=== PATIENT | female | born 2000 | race African-American/Black ===

== ENCOUNTER 2024-10-30 13:38 | Emergency (ER) | payer MEDICAID ==
[~2024-10-30] VITALS: Ht 182.9 cm; Wt 11.7 kg
[2024-10-30] MEDS ORDERED: ACYCLOVIR 400 MG TAB PO ONE (14:00)
[2024-10-30] MEDS ORDERED: predniSONE 20 MG TAB PO ONE (14:00)
[2024-10-30] MEDS ORDERED: FAMCICLOVIR500 MG PO (14:08)
[2024-10-30] MEDS ORDERED: PREDNISONE20 MG PO (14:08)
[2024-10-30] MEDS ORDERED: DULOXETINE HCL60 MG PO (14:21)
[2024-10-30] MEDS ORDERED: IRON325 M1 PO (14:21)
[2024-10-30 14:28] VITALS: BP 144/99
== END 2024-10-30 14:24 | disposition home or self-care (01) ==
LOC: ED 13:38
DX: G51.0 Bell's palsy (principal)
CPT/HCPCS: 99284; A9270; J7512